=== PATIENT | male | born 1950 | race Two or more races ===

== ENCOUNTER → 2018-08-20 | Outpatient (CLI) | payer OTHER ==
[~2018-08-20] MED LIST: ACCUPRIL40 MG; ALFUZOSIN HCL10 MG; ASPIR 8181 MG; BISOPROLOL/HCTZ1 TA1; CLONAZEPAM0.5 MG; FINASTERIDE5 MG; GEMFIBROZIL600 MG; GLUCOPHAGE XR500 MG; LEVSIN0.125 MG; LIPITOR20 MG; NEURONTIN300 MG; PAXIL10 MG/5 ML; PRILOSEC10 M1
== END | disposition home or self-care (01) ==
LOC: NUCLEAR 08-16 10:00
DX: I10 Essential (primary) hypertension (principal); J44.9 Chronic obstructive pulmonary disease, unspecified

== ENCOUNTER 2020-01-24 09:44 | Outpatient (CLI) | payer OTHER | END 2020-01-24 09:51 | disposition home or self-care (01) | LOC: NUCLEAR 09:44 | PROVIDERS: ATTEND Internal Medicine Cardiovascular Disease | DX: I10 Essential (primary) hypertension (principal) ==

== ENCOUNTER 2021-03-09 03:41 | Emergency (ER) | payer OTHER ==
[~2021-03-09] VITALS: Ht 162.6 cm; Wt 86.2 kg
[2021-03-09] MEDS ORDERED: K-TAB10 MEQ PO (11:05)
[2021-03-09] MEDS ORDERED: LEVSIN/SL0.125 MG SL (11:05)
== END 2021-03-09 11:07 | disposition home or self-care (01) ==
LOC: ER 03:41
DX: R10.32 Left lower quadrant pain (principal); K57.30 Diverticulosis of large intestine without perforation or abscess without bleeding; E87.6 Hypokalemia
CPT/HCPCS: 74177; Q9965

== ENCOUNTER 2021-05-26 07:40 | Outpatient (CLI) | payer OTHER ==
[~2021-05-26 07:40] MED LIST changes: +K-TAB10 MEQ PO; +LEVSIN/SL0.125 MG SL
== END 2021-05-26 07:41 | disposition home or self-care (01) ==
LOC: NUCLEAR 07:40
PROVIDERS: ATTEND Internal Medicine Cardiovascular Disease
DX: I10 Essential (primary) hypertension (principal)

== ENCOUNTER 2023-05-31 09:52 | Outpatient (CLI) | payer OTHER | END 2023-05-31 09:53 | disposition home or self-care (01) | LOC: NUCLEAR 09:52 | PROVIDERS: ATTEND Internal Medicine Cardiovascular Disease | DX: I10 Essential (primary) hypertension (principal) ==

== ENCOUNTER → 2024-05-28 08:53 | Outpatient (CLI) | payer OTHER | END | disposition home or self-care (01) | LOC: NUCLEAR 08:53 | PROVIDERS: ATTEND Internal Medicine Cardiovascular Disease | DX: I10 Essential (primary) hypertension (principal) ==

== ENCOUNTER 2024-08-01 10:10 | Outpatient (CLI) | payer OTHER | END 2024-08-01 10:13 | disposition home or self-care (01) | LOC: RAD 10:10 | PROVIDERS: ATTEND Orthopaedic Surgery | DX: M25.512 Pain in left shoulder (principal) ==

== ENCOUNTER 2024-10-22 08:57 | Outpatient (CLI) | payer OTHER | END 2024-10-22 09:00 | disposition home or self-care (01) | LOC: SONOGRAMA 08:57 | PROVIDERS: ATTEND Internal Medicine Cardiovascular Disease | DX: M12.9 Arthropathy, unspecified (principal) ==

== ENCOUNTER 2024-11-06 12:00 | Outpatient (CLI) | payer OTHER | END 2024-11-06 12:05 | disposition home or self-care (01) | LOC: SONOGRAMA 12:00 | PROVIDERS: ATTEND Internal Medicine Cardiovascular Disease | DX: M19.90 Unspecified osteoarthritis, unspecified site (principal) ==

== ENCOUNTER → 2025-03-13 | Emergency (ER) | payer OTHER ==
[~2025-03-13] VITALS: Ht 162.6 cm; Wt 83.9 kg
[~2025-03-13] MED LIST changes: +0.9 % SODIUM CHLORIDE 1,000 ML IV ONE; +CIPRO500 MG PO; +CIPROFLOXACIN IN 5 % DEXTROSE 400 MG/200 ML PIGGYBAG IV ONE; +CIPROFLOXACIN IN 5 % DEXTROSE 400 MG/200 ML PIGGYBAG IV STA; +GEMFIBROZIL600 MG PO; +KETOROLAC TROMETHAMINE 30 MG VIAL IV STA; +KETOROLAC TROMETHAMINE 30 MG VIAL ONE; +METFORMIN HCL1000 M2 PO; +METRONIDAZOLE/SODIUM CHLORIDE 500 MG/100 ML PIGGYBACK IV ONE; +METRONIDAZOLE/SODIUM CHLORIDE 500 MG/100 ML PIGGYBACK IV STA; +METRONIDAZOLE500 MG PO; +PEPCID AC20 MG PO; +PROBIOTIC1 EAC2 PO; +ZESTRIL20 MG PO
[2025-03-13 06:58] LABS: BASO % 0.4 % (0.1-1.2); EOS # 0.18 (0.04-0.54); EOS % 1.3 % (0.7-7.0); LYMPH # 0.96 (1.18-3.74); LYMPH % 7.0 % (19.3-53.1); MEAN PLATELET VOLUME 10.50 fl (9.4-12.4); MONO # 1.10 (0.24-0.82); MONO % 8.0 % (4.7-12.5); NEUT # 11.40 (1.56-6.13); NEUT % 82.9 % (34.0-71.1); RED CELL DISTRIBUTION WIDTH 12.9 % (11.6-14.4)
[2025-03-13 07:09] LABS: INR 1.09
[2025-03-13 07:14] LABS: ALT/SGPT 25.0 U/L (12-78); AST/SGOT 20.0 U/L (15-37); BILIRUBIN TOTAL 0.43 mg/dL (0.3-1.2); BUN CREA RATIO 16.0 (7.0-25.0); CREATININE SERUM 1.39 mg/dL (0.70-1.30); GFR 49.95; GLOBULINA 3.2 G/DL (2.4-3.5); GLUCOSE FASTING 119.0 mg/dL (65-100); OSMOLALITY SERUM 286.0 MOSM/KG (275-295)
[2025-03-13 07:22] LABS: URINE APPEARANCE Clear; URINE BILIRRUBIN Negative (NEGATIVE); URINE BLOOD Negative; URINE COLOR Yellow; URINE GLUCOSE Negative (NEGATIVE); URINE KETONE Negative (NEGATIVE); URINE LEUKOCYTE Negative; URINE NITRATE Negative; URINE PROTEIN Negative (NEGATIVE); URINE UROBILINOGEN 0.2 E.U./dl
[2025-03-13 07:25] LABS: URINE BACTERIA 17.1 uL (0.0-1933); URINE EPITHELIAL CELLS 3.3 uL (0.0-38.8); URINE WBC 2.7 uL (0.0-23.2)
[2025-03-13 07:27] LABS: URINE CAST 0.28 uL (0.0-1.40); URINE RBC 1.2 uL (0.0-20.8)
== END | disposition home or self-care (01) ==
LOC: ER 03:11
PROVIDERS: General Practice
DX: K57.92 Diverticulitis of intestine, part unspecified, without perforation or abscess without bleeding (principal); R10.32 Left lower quadrant pain; R10.9 Unspecified abdominal pain; R10.31 Right lower quadrant pain; Z87.19 Personal history of other diseases of the digestive system; I10 Essential (primary) hypertension; E11.9 Type 2 diabetes mellitus without complications; Z79.84 Long term (current) use of oral hypoglycemic drugs
CPT/HCPCS: 36415; 74177; 96365; 99284; J0744; J1885; J3490; Q9965